=== PATIENT | male | born 1935 | race Caucasian/White ===

== ENCOUNTER 2022-06-29 03:36 | Emergency (ER) | payer OTHER ==
[~2022-06-29] VITALS: Ht 170.2 cm; Wt 79.4 kg
[~2022-06-29 03:36] MED LIST: MECL12.5 PO; MELO7.5 PO
[2022-06-29] MEDS ORDERED: FLOMAX0.4 MG PO (04:06)
[2022-06-29] MEDS ORDERED: CARBLEV25 SL (06:09)
[2022-06-29] MEDS ORDERED: IBUP600 PO ×2 (06:21→10:52)
[2022-06-29] MEDS ORDERED: GABA300 PO (06:21)
== END 2022-06-29 10:55 | disposition home or self-care (01) ==
LOC: ER 03:36
DX: M54.16 Radiculopathy, lumbar region (principal); R26.2 Difficulty in walking, not elsewhere classified; G20 Parkinson's disease; M54.40 Lumbago with sciatica, unspecified side; Z88.0 Allergy status to penicillin; Z79.899 Other long term (current) drug therapy
CPT/HCPCS: A9270; J1100; J1885

== ENCOUNTER 2022-07-07 17:24 | Emergency (ER) | payer OTHER ==
[~2022-07-07] VITALS: Ht 170.2 cm; Wt 79.4 kg
[~2022-07-07 17:24] MED LIST changes: +CARBLEV25 SL; +FLOMAX0.4 MG PO; +GABA300 PO; +IBUP600 PO
[2022-07-07 18:20] LABS: BASOPHILS ABSOLUTE AUTO 0.02 K/mm3 (0.00-0.23); BASOPHILS PERCENT AUTO 0 % (0-2); EOSINOPHILS PERCENT AUTO 0 % (0-6); Hematocrit 47.6 % (37.0-53.0); Hemoglobin 16.1 g/dL (13.5-17.5); IMMATURE GRAN ABSOLUTE AUTO 0.07 K/mm3 (0.00-0.10); IMMATURE GRAN PERCENT AUTO 1 % (0-1); LYMPHOCYTES ABSOLUTE AUTO 0.84 K/mm3 (0.84-5.20); LYMPHOCYTES PERCENT AUTO 11 % (21-46); MONOCYTES ABSOLUTE AUTO 0.08 K/mm3 (0.16-1.47); MONOCYTES PERCENT AUTO 1 % (4-13); Mean Corpuscular HGB 29.3 pg (26.0-34.0); Mean Corpuscular HGB Conc 33.8 g/dL (31.5-36.5); Mean Corpuscular Volume 87 fL (80-100); NEUTROPHILS ABSOLUTE AUTO 6.69 K/mm3 (1.96-9.15); NEUTROPHILS PERCENT AUTO 87 % (41-73); Platelet Count 243 K/mm3 (150-400); RDW Coefficient Variation 12.2 % (11.7-14.2); RDW Standard Deviation 39.2 fL (35.1-46.3)
[2022-07-07 18:47] LABS: Albumin, Blood 3.8 g/dL (3.4-5.0); Albumin/Globulin Ratio 1.1 (0.8-1.8); Bilirubin, Total 0.9 mg/dL (0.1-1.0); Calcium, Blood 9.3 mg/dL (8.5-10.1); Creatinine, Blood 0.84 mg/dL (0.60-1.20); Globulin, Blood 3.5 g/dL (2.2-4.0); Potassium, Blood 4.6 mmol/L (3.5-5.5); Thyroid Stimulating Hormone 1.01 uIU/mL (0.360-4.800); Total Protein, Blood 7.3 g/dL (6.4-8.2)
[2022-07-07 18:54] LABS: Source, Urine Straight Cath
[2022-07-07 19:09] LABS: Appearance, Urine Clear (Clear); Bilirubin, Urine Neg (Neg); Blood, Urine 1+ (Neg); Color, Urine Yellow (P-Yellow); Glucose Qualitative, Urine Neg (Neg); Ketones, Urine Neg (Neg); Leukocyte Esterase, Urine Neg (Neg); Nitrite, Urine Neg (Neg); Protein, Urine Neg (Neg); Urobilinogen, Urine NORM (Normal)
[2022-07-07 19:16] LABS: Bacteria Few /hpf; Squamous Epithelial Cells Rare /hpf (Few); White Blood Cells, Urine 0-2 /hpf (0-5)
== END 2022-07-07 21:41 | disposition home or self-care (01) ==
LOC: ER 17:24
PROVIDERS: Emergency Medicine
DX: R41.82 Altered mental status, unspecified (principal); G20 Parkinson's disease; Z88.0 Allergy status to penicillin
CPT/HCPCS: 36415; 51702; 80053; 81001; 84443; 85025; J7030

== ENCOUNTER 2023-01-05 09:32 | Day surgery (SDC) | payer OTHER ==
[~2023-01-05] VITALS: Ht 170.2 cm; Wt 80.2 kg
[2023-01-05] MEDS ORDERED: Lisinopril2.5 MG PO (10:21)
[2023-01-05] MEDS ORDERED: MELA3 PO (10:22)
--- NOTE | 2023-01-05 10:32 | NUR ---
01/05/23 1032 Genesis Rosario AT [address] AT 1022
[2023-01-05 11:20] VITALS: BP 132/71
== END 2023-01-05 11:37 | disposition home or self-care (01) ==
LOC: ORSCSDS 09:32
PROVIDERS: Ophthalmology
PROC: 08RJ3JZ Replacement of Right Lens with Synthetic Substitute, Percutaneous Approach (ICD-10-PCS; principal; 2023-01-05 11:00)
DX: H25.13 Age-related nuclear cataract, bilateral (principal); H52.201 Unspecified astigmatism, right eye; I10 Essential (primary) hypertension; Z87.891 Personal history of nicotine dependence; G20 Parkinson's disease; Z79.899 Other long term (current) drug therapy; Z79.82 Long term (current) use of aspirin
CPT/HCPCS: J2001; J2250; J3010; J3301; J7040; V2632

== ENCOUNTER 2023-01-12 09:26 | Day surgery (SDC) | payer OTHER ==
[~2023-01-12] VITALS: Ht 170.2 cm; Wt 79.3 kg
[~2023-01-12 09:26] MED LIST changes: +Lisinopril2.5 MG PO; +MELA3 PO
--- NOTE | 2023-01-12 10:14 | NUR ---
01/12/23 1014 Genesis Rosario AT [address] AT 1010
[2023-01-12 11:30] VITALS: BP 130/57
--- NOTE | 2023-01-12 11:45 | NUR ---
01/12/23 1145 Louis Manning IV REMOVED. SITE WNL.
== END 2023-01-12 11:44 | disposition home or self-care (01) ==
LOC: ORSCSDS 09:26
PROVIDERS: Ophthalmology
PROC: 08RK3JZ Replacement of Left Lens with Synthetic Substitute, Percutaneous Approach (ICD-10-PCS; principal; 2023-01-12 11:00)
DX: H25.12 Age-related nuclear cataract, left eye (principal); Z96.1 Presence of intraocular lens; H52.202 Unspecified astigmatism, left eye; I10 Essential (primary) hypertension; G20 Parkinson's disease; Z79.899 Other long term (current) drug therapy; Z79.82 Long term (current) use of aspirin
CPT/HCPCS: J2250; J3010; J3301; J7040; V2632